=== PATIENT | female | born 1960 | race Caucasian/White ===

== ENCOUNTER 2016-11-24 13:56 | Emergency (ER) | payer SELFPAY ==
--- NOTE | 2016-11-24 14:23 | ED Physician Documentation ---
Female Urogenital Problems - HISTORIAN Historian: patient - HPI Chief Complaint: Female Urogenital Problems Onset: days ago (7 days) Severity: moderate Location of Pain: low back pain (right) Further Comments: yes - Associated Symptoms Urinary Symptoms: blood in urine, frequent urination, discomfort w/ urination, burning w/ urination, urgency w/ urination Discharge: denies: vaginal discharge - ROS CONST: fever (not sure how high), chills - PAST HX Past History: other (breast cancer) Surgeries/Procedures: , hysterectomy (partial), other (lumpectomy, right) Allergies/Adverse Reactions: Allergies Allergy/AdvReac Type Severity Reaction Status Date / Time Sulfa (Sulfonamide AdvReac Intermediate Generalized Verified 11/24/16 15:04 Antibiotics) Redness Home Medications: Ambulatory Orders Medication Instructions Recorded Ciprofloxacin HCl [Cipro] 250 mg PO BID #10 tablet 11/24/16 Letrozole [Femara] 2.5 mg PO 11/24/16 Phenazopyridine HCl [Pyridium] 200 mg PO TID #15 tablet 11/24/16 Venlafaxine HCl [Effexor Xr] 11/24/16 - SOCIAL HX Smoking History: non-smoker Alcohol Use: occasionally Drug Use: none - FAMILY HX Family History: none - REVIEWED ASSESSMENTS Nursing Assessment Reviewed: Yes Vitals Reviewed: Yes Female Urogenital Problems - EXAM General Appearance: no acute distress, alert Neck: nml inspection Respiratory: no resp. distress, breath sounds nml. No: respiratory distress CVS: reg rate & rhythm, heart sounds normal, equal pulses, no murmur Abdomen: no organomegaly, no distention, nml bowel sounds, tenderness ( suprapubic area). No: abnml bowel sounds Back: non-tender Skin: color nml, no rash, warm,dry Extremities: normal range of motion, no edema Neuro: oriented X3, CN's nml as tested, motor nml, mood/affect nml, cognition normal Discharge Clincal Impression: Cystitis Prescriptions: Ciprofloxacin HCl [Cipro] 250 mg PO BID #10 tablet Phenazopyridine HCl [Pyridium] 200 mg PO TID #15 tablet Referrals: Primary Doctor,No [Primary Care Provider] - 2 Days Home Medications: Ambulatory Orders Ciprofloxacin HCl [Cipro] 250 mg PO BID #10 tablet 11/24/16 Letrozole [Femara] 2.5 mg PO 11/24/16 Phenazopyridine HCl [Pyridium] 200 mg PO TID #15 tablet 11/24/16 Venlafaxine HCl [Effexor Xr] 11/24/16 Condition: Stable Disposition: 01 HOME, SELF-CARE Decision to Admit: [id number] Date of Decison to Admit: 11/24/16 Decision Time: 15:27
[2016-11-24 15:01] VITALS: BP 130/92
[2016-11-24 16:43] LABS: APPEARANCE,URINE SLIGHTLY CLOUDY (CLEAR); COLOR,URINE AMBER (YELLOW); OCCULT BLOOD,URINE 3+ (NEGATIVE); UROBILINOGEN URINE 0.2 Eu (0.2-1.0)
== END 2016-11-24 15:30 | disposition home or self-care (01) ==
LOC: ED 13:56
DX: N30.90 Cystitis, unspecified without hematuria (principal)
CPT/HCPCS: 81002; 87086; 99283

== ENCOUNTER 2017-12-14 16:38 | Emergency (ER) | payer OTHER ==
--- NOTE | 2017-12-14 16:50 | ED Physician Documentation ---
Headache - HISTORIAN Historian: patient - HPI Stated Complaint: headache Chief Complaint: Headache Onset: hours (45) Timing: abrupt New Gradual Onset: No (sudden 45 min ago ) Exposure To: none Severity: severe Quality: other (she has never had this pain before = no history of migraines ) Associated Symptoms: sensitivity to light, nausea. denies: fever, chills, problems with vision, vomiting, neck pain, stiffness, speech problems, weakness , trouble walking, numbness, dizziness, light-headedness Preceding Symptoms: denies: visual disturbance Exacerbated By: light, noise, position Further Comments: yes (She states about 45 min ago she suddlenly got a headache - focused on the back of her head (denies any injury) She reports the headache has traveled to the top of her head. She has taken 1 tylenol she is not sure of the dose. She does have breast cancer and she is on medication however she is not able to recall any of the meds. She denies any alcohol intake today. She does drink frequently. She has had "soda and a receese egg" to eat today . She does feel nausea) Last known Well Code/Unknown Code: Unknown - ROS NEURO/PSYCH: anxiety, depression. denies: confusion EYES/ENT: denies: sore throat, difficulty swallowing, sinus pain CVS/RESP: none GI/: abdominal pain MS/SKIN/LYMPH: denies: muscle aches, rash all systems neg except as marked: Yes (headache ) - PAST HX Medical History: cancer (breast and "mood issues" ) Surgical History: other Immunizations: UTD Allergies/Adverse Reactions: Allergies Allergy/AdvReac Type Severity Reaction Status Date / Time Sulfa (Sulfonamide AdvReac Intermediate Generalized Verified 12/14/17 16:58 Antibiotics) Redness Home Medications: Ambulatory Orders Medication Instructions Recorded Letrozole [Femara] 2.5 mg PO 11/24/16 Venlafaxine HCl [Effexor Xr] 150 mg PO DAILY 11/24/16 Carbamazepine [Tegretol] 200 mg PO BID 12/14/17 - SOCIAL HX Smoking History: cigarettes Alcohol Use: occasionally Drug Use: none - Family HX Family History: none - VITAL SIGNS Vital Signs: Vital Signs Temp Pulse Resp BP Pulse Ox 98.8 F 79 16 143/74 99 12/14/17 18:58 12/14/17 18:58 12/14/17 18:58 12/14/17 18:58 12/14/17 18:58 - REVIEWED ASSESSMENTS Nursing Assessment Reviewed: Yes Vitals Reviewed: Yes Progress - Progress Progress: 1814: pain is "better" . She states she is feeling less pressure and pain. DG 1839: states pain is a zero. She is asking to go home DG ED Results Lab/Radiology - Lab Results Lab Results: Lab Results 12/14/17 12/14/17 12/14/17 17:49 17:49 17:10 WBC RBC Hgb Hct MCV MCH MCHC RDW Plt Count Neut % (Auto) Lymph % (Auto) [place] % (Auto) Eos % (Auto) Baso % (Auto) Neut # (Auto) Lymph # (Auto) [place] # (Auto) Eos # (Auto) Baso # (Auto) Reactive Lymphs % Reactive Lymphs # Sodium 138 mmol/L mmol/L (136-145) Potassium 3.8 mmol/L mmol/L (3.5-5.1) Chloride 101 mmol/L mmol/L (98-107) Carbon Dioxide 20 mmol/L L mmol/L (22-30) BUN 14 mg/dL mg/dL (7-17) Creatinine 0.70 mg/dL mg/dL (0.52-1.04) Estimated Creat Clear 123 Est GFR ( Amer) > 60 (60 - ) Est GFR (Non-Af Amer) > 60 (60 - ) Glucose 98 mg/dL mg/dL (74-106) Calcium 9.6 mg/dL mg/dL (8.4-10.2) Total Bilirubin 0.8 mg/dL mg/dL (0.2-1.3) AST 39 U/L U/L (15-46) ALT 37 U/L U/L (13-69) Alkaline Phosphatase 39 U/L U/L (38-126) Total Protein 7.7 g/dL g/dL (6.3-8.2) Albumin 4.6 g/dL g/dL (3.5-5.0) Urine Color Yellow (YELLOW) Urine Appearance Clear (CLEAR) Urine pH 7.0 (5.0 - 8.0) Ur Specific [place] 1.010 (1.010-1.030) Urine Protein Negative mg/dL mg/dL (NEGATIVE) Urine Ketones Negative mg/dL mg/dL (NEGATIVE) Urine Occult Blood Negative (NEGATIVE) Urine Nitrite Negative (NEGATIVE) Urine Bilirubin Negative (NEGATIVE) Urine Urobilinogen 0.2 Eu Eu (0.2-1.0) Ur Leukocyte Esterase Trace H (NEGATIVE) Urine Glucose Negative mg/dL mg/dL (NEGATIVE) Opiates Screen Negative ng/mL ng/mL (<300) Oxycodone Screen Negative ng/mL ng/mL (<100) Methadone Screen Negative ng/mL ng/mL (<200) Ur Barbiturates Screen Negative ng.mL ng.mL (<200) Tricyclic Antidepress Negative ng/mL ng/mL (<300) Phencyclidine Screen Negative ng/mL ng/mL (< 25) Amphetamines Screen Negative ng/mL ng/mL (<500) U Methamphetamines Scrn Negative ng/mL ng/mL (<500) MDMA Negative ng/mL ng/mL (<500) Benzodiazepines Screen Negative ng/mL ng/mL (<150) Urine Cocaine Screen Negative ng/mL ng/mL (<150) U Cannabinoids Screen Negative ng/mL ng/mL (< 50) 12/14/17 17:10 WBC 5.50 K/ul K/ul (4.00-12.00) RBC 4.10 M/ul M/ul (3.90-5.20) Hgb 13.1 g/dL g/dL (12.0-16.0) Hct 37.1 % % (34.5-46.5) MCV 90.6 fl fl (80.0-100.0) MCH 31.9 pg pg (28.0-34.0) MCHC 35.2 g/dL g/dL (30.0-36.0) RDW 12.0 % % (11.3-14.3) Plt Count 314 K/mm3 K/mm3 (130-400) Neut % (Auto) 53.9 % % (39.0-79.0) Lymph % (Auto) 36.4 % % (16.0-50.0) [place] % (Auto) 5.9 % % (0.0-11.0) Eos % (Auto) 1.2 % % (0.0-6.8) Baso % (Auto) 0.5 (0.0-1.5) Neut # (Auto) 3.0 # k/uL # k/uL (1.4-7.7) Lymph # (Auto) 2.0 # k/uL # k/uL (0.6-4.0) [place] # (Auto) 0.3 # k/uL # k/uL (0.0-0.9) Eos # (Auto) 0.1 # k/uL # k/uL (0.0-0.6) Baso # (Auto) 0.0 # k/uL # k/uL (0.0-0.5) Reactive Lymphs % 2.0 % % (0.0-5.0) Reactive Lymphs # 0.1 # k/uL # k/uL (0.0-0.8) Sodium Potassium Chloride Carbon Dioxide BUN Creatinine Estimated Creat Clear Est GFR ( Amer) Est GFR (Non-Af Amer) Glucose Calcium Total Bilirubin AST ALT Alkaline Phosphatase Total Protein Albumin Urine Color Urine Appearance Urine pH Ur Specific [place] Urine Protein Urine Ketones Urine Occult Blood Urine Nitrite Urine Bilirubin Urine Urobilinogen Ur Leukocyte Esterase Urine Glucose Opiates Screen Oxycodone Screen Methadone Screen Ur Barbiturates Screen Tricyclic Antidepress Phencyclidine Screen Amphetamines Screen U Methamphetamines Scrn MDMA Benzodiazepines Screen Urine Cocaine Screen U Cannabinoids Screen - Radiology Radiology Impressions: Examination: CT head without contrast History: PT STATES HEADACHE X1 DAY (Hx) Comparison exam: None available Technique: Noncontrast head CT protocol. Findings: Scanner artifact. Ventricles and sulci are consistent for patient age. Cerebrocerebellar parenchyma demonstrates periventricular low attenuation consistent with small vessel disease. No evidence for parenchymal hemorrhage. No evidence for mass or mass effect. No midline shift. No extra axial fluid collections. Partial visualization of the paranasal sinuses, mastoid air cells, orbits, skull and scalp without gross irregularity. Impression: Age related changes. No acute parenchymal process. No hemorrhage. Electronically signed on Dec 14, 2017 6:13:37 PM CDT by: Gabriel Soto - Orders Orders: ED Orders Category Date Time Status Place IV Lock 1T Care 12/14/17 16:[address] BRAIN W/O CONTRAST Stat Exams 12/14/17 Completed CBC/PLATELET/DIFF Stat Lab 12/14/17 17:10 Completed CMP Stat Lab 12/14/17 17:10 Completed UA MACRO DIP ONLY Routine Lab 12/14/17 17:49 Completed UDS [DRUG SCREEN URINE MEDICAL ONLY] Routine Lab 12/14/17 17:49 Completed 0.9 % Sodium Chloride [Normal Saline] 1,000 ml Med 12/14/17 16:57 Discontinued IV Q1H Ketorolac Tromethamine [Toradol] Med 12/14/17 16:57 Discontinued 30 mg IVP NOW ONE Ondansetron HCl/Pf [Zofran 4 mg/2 ml] Med 12/14/17 16:57 Discontinued 4 mg IVP NOW ONE Headache Physical Exam - EXAM General Appearance: no acute distress, alert EENT: no facial swelling, eyes nml inspection, PERRL, nml ENT Neck: normal inspection Respiratory: no resp distress, chest non-tender, breath sounds normal CVS: reg. rate & rhythm, heart sounds nml Abdomen: non-tender, nml bowel sounds Skin: color nml, no rash Extremitites: non-tender, normal range of motion, no evidence of injury, no edema - NEURO/PSYCH Higher Functions: alert, oriented x3, nml speech, mood/affect nml Cranial: nml as tested, no evidence of acute CVA Cerebellar: nml as tested Sensorimotor: motor nml, sensation nml Discharge Clincal Impression: Headache Qualifiers: Headache type: unspecified Headache chronicity pattern: acute headache Intractability: intractable Qualified Code(s): R51 - Headache Referrals: Primary Doctor,No [Primary Care Provider] - 2 Days Comments: 1. continue to increase fluids 2. Tylenol or Ibuprofen as needed for headache 3. Follow up with PCP in 2-4 days 4. Return to ER for concerning symptoms Condition: Stable Disposition: 01 HOME, SELF-CARE Decision to Admit: NO Date of Decison to Admit: 12/14/17 Decision Time: 18:55
[2017-12-14] MEDS ORDERED: ONDANSETRON HCL/PF 4 MG/ 2ML VIAL IVP ONE (16:57)
[2017-12-14] MEDS ORDERED: KETOROLAC TROMETHAMINE 30 MG/1ML VIAL IVP ONE (16:57)
[2017-12-14] MEDS ORDERED: 0.9 % SODIUM CHLORIDE 1,000 ML IV ONE (16:57)
[2017-12-14 17:53] LABS: eGFR (African) > 60; eGFR (Non-African) > 60
[2017-12-14 18:50] LABS: BASOPHILS % 0.5 (0.0-1.5); EOSINOPHILS % 1.2 % (0.0-6.8); MEAN CORPUSCULAR HEMOGLOBIN 31.9 pg (28.0-34.0); MEAN CORPUSCULAR VOLUME 90.6 fl (80.0-100.0); MONOCYTES % 5.9 % (0.0-11.0)
[2017-12-14 19:04] VITALS: BP 143/74
--- NOTE | 2017-12-14 19:53 | Diagnostic Imaging Report ---
[facility] [id number] [facility] [address] [place], [place]. [address] Report Submission Date: Dec 14, 2017 6:13:37 PM CDT Patient Study Name: JERMAINE TOMLINSON Date: Dec 14, 2017 5:23:00 PM CDT Modality Type: CT\SR Gender: F Description: CT BRAIN W/O CONTRAST : 60 Institution: [facility] Physician: RONNIE TORRES Examination: CT head without contrast History: PT STATES HEADACHE X1 DAY (Hx) Comparison exam: None available Technique: Noncontrast head CT protocol. Findings: Scanner artifact. Ventricles and sulci are consistent for patient age. Cerebrocerebellar parenchyma demonstrates periventricular low attenuation consistent with small vessel disease. No evidence for parenchymal hemorrhage. No evidence for mass or mass effect. No midline shift. No extra axial fluid collections. Partial visualization of the paranasal sinuses, mastoid air cells, orbits, skull and scalp without gross irregularity. Impression: Age related changes. No acute parenchymal process. No hemorrhage. Electronically signed on Dec 14, 2017 6:13:37 PM CDT by: Gabriel GAMEZ
[2017-12-15 07:18] LABS: APPEARANCE,URINE CLEAR (CLEAR); COLOR,URINE YELLOW (YELLOW); OCCULT BLOOD,URINE NEGATIVE (NEGATIVE); UROBILINOGEN URINE 0.2 Eu (0.2-1.0)
[2017-12-15 07:19] LABS: CANNABINOIDS NEGATIVE ng/mL (< 50); METHYLENEDIOXYMETHAMPHETAMINE NEGATIVE ng/mL (<500)
== END 2017-12-14 18:58 | disposition home or self-care (01) ==
LOC: ED 16:38
DX: R51 Headache (principal)
CPT/HCPCS: 70450; 80053; 80377; 81002; 85025; J1885; J2405; J7030; 96365; 96375; 99283; G0481; S1016